=== PATIENT | female | born 1990 | race Caucasian/White ===

== ENCOUNTER → 2023-11-23 08:59 | Outpatient (REF) | payer OTHER, SELFPAY | LOC: PNTC 08:59 | PROVIDERS: ATTENDING PHYSICIAN Obstetrics & Gynecology | DX: Z36.0 Encounter for antenatal screening for chromosomal anomalies (principal); Z36.82 Encounter for antenatal screening for nuchal translucency | CPT/HCPCS: 76801; 76813 ==

== ENCOUNTER 2024-06-09 03:35 | Inpatient (IN) | payer OTHER, SELFPAY ==
[2024-06-09 04:34] VITALS: BP 122/78
[2024-06-09 05:02] VITALS: BMI 31.3
[2024-06-09 09:33] LABS: % Basophils 0.2 % (0-2); % Eosinophils 0.4 % (0-6); % Immature Granulocytes 0.5 % (0-0.5); % Lymphocytes 18.8 % (20.5-51.1); % Monocytes 8.1 % (1.7-9.3); Absolute Immature Granulocytes 0.1 10^3/uL (0-0.05); Absolute Monocytes 0.9 10^3/uL (0.1-0.6); Absolute Neutrophils 7.8 10^3/uL (1.4-6.5); Hematocrit 37.9 % (37.0-47.0); Hemoglobin 13.4 g/dL (12.0-16.0); Mean Corp Hgb Conc. 35.4 g/dL (33.0-37.0); Mean Corpuscular Hgb 31.5 pg (27.0-31.0); Mean Platelet Volume 11.6 fL (7.4-10.4); Nucleated Red Blood Cells % 0 %; Platelet Count 257 10^3/uL (130-400); Red Blood Cell Count 4.26 10^6/uL (4.20-5.40); White Blood Cell Count 10.8 10^3/uL (4.8-10.8)
[2024-06-09] MEDS: PITOCIN 30 UNITS/NSS 500 ML IV ×2 (10:09→23:39)
[2024-06-09] MEDS: FENTANYL/BUPIVACAINE 100 EPIDURAL ×2 (14:36→21:54)
[2024-06-09] MEDS: SUBLIMAZE 100 MCG EPIDURAL (14:36)
[2024-06-09] MEDS: LR 1000 IV (21:54)
[2024-06-10] MEDS: METHERGINE INJECTION 0.2 MG IM (00:27)
[2024-06-10] MEDS: MOTRIN 600 MG PO ×2 (01:36→19:32)
[2024-06-10] MEDS: TRANEXAMIC ACID 100 IV (02:02)
[2024-06-10 06:17] LABS: Hematocrit 37.6 % (37.0-47.0); Hemoglobin 13.6 g/dL (12.0-16.0)
[2024-06-10] MEDS: SENOKOT-S 1 TABLET PO (07:53)
[2024-06-10] MEDS: PRENATAL PLUS 1 TABLET PO (07:53)
[2024-06-10 11:12] LABS: Syphilis/T. pallidum Ab Reflex Negative (Negative)
[2024-06-10] MEDS: TYLENOL 650 MG PO (16:50)
[2024-06-11] MEDS: PRENATAL PLUS 1 TABLET PO (07:51)
[2024-06-11] MEDS: MOTRIN 600 MG PO (07:51)
== END 2024-06-11 13:26 | disposition home or self-care (01) | DRG 807 ==
LOC: LDRP 03:35
PROVIDERS: Obstetrics & Gynecology; ADMITTING PHYSICIAN Obstetrics & Gynecology
PROC: 10E0XZZ Delivery of Products of Conception, External Approach (ICD-10-PCS; 2024-06-10)
PROC: 0HQ9XZZ Repair Perineum Skin, External Approach (ICD-10-PCS; 2024-06-10)
DX: O70.0 First degree perineal laceration during delivery (principal); Z37.0 Single live birth; O77.0 Labor and delivery complicated by meconium in amniotic fluid; Z3A.40 40 weeks gestation of pregnancy
CPT/HCPCS: 88307; 85014; 85018; 85025; 86780; 86850; 86900; 86901

== ENCOUNTER 2024-12-24 22:02 | Emergency (ER) | payer OTHER, SELFPAY ==
[2024-12-24 22:07] VITALS: BP 115/75
--- NOTE | 2024-12-24 23:48 | ED.GENMED ---
History of Present Illness
General
Chief Complaint: Foreign Body Removal
Time Seen by Provider: 12/24/24 23:13
History of Present Illness
History of Present Illness:
34-year-old female 6 months concern for tampon stuck in her vagina. Patient states her last period was about a month ago but has noticed pressure while having sex yesterday. Patient states that feels like her partner is hitting against
something causing pressure. Patient denies fever, abdominal pain, vaginal pain or vaginal discharge.
Phy Exam
Physical Exam
Physical Exam:
General: Alert, no acute distress
Head: NCAT
Eyes: clear conjunctiva
Neck: supple
Cardiac: regular rate and rhythm, no murmur
Lungs: clear to auscultation bilaterally. No wheezes, rales, or rhonchi. Speaking full unlabored sentences. No respiratory distress.
Abdomen: soft, nondistended nontender. No rebound or guarding.
MSK: no lower extremity edema bilaterally. No deformity
Skin: warm, dry
Neuro: Alert and oriented x3. no focal deficits
Pelvic: No foreign bodies visualized. No cervical motion tenderness. No adnexal tenderness. No vaginal discharge. No vaginal bleeding. Nurse calender feeder present during exam
Course
Vital Signs
Initial and Last Documented VS:
Initial Vital Signs
Temp Pulse Resp BP Pulse Ox
98.2 F 84 18 115/75 99
12/24/24 22:07 12/24/24 22:07 12/24/24 22:07 12/24/24 22:07 12/24/24 22:07
Last Documented Vital Signs
Temp Pulse Resp BP Pulse Ox
98.2 F 84 18 115/75 99
12/24/24 22:07 12/24/24 22:07 12/24/24 22:07 12/24/24 22:07 12/24/24 22:07
MDM/Problems Addressed
MDM/Problems Addressed:
34-year-old female currently 6 months presenting for concern she has a tampon stuck in her vagina. Patient reports pressure while having sex most recently last night. Patient denies fever, abdominal pain or vaginal discharge. Pelvic
exam normal, no foreign bodies visualized. ?partner striking cervix causing pressure. Stable for discharge with OBGYN follow up
*Critical Care Note
Total Time (30-74mins, 75-104mins- exclusive of procedures): Not Applicable
ED Attending Note
-
Portions of this chart may have been created with voice recognition software.� Occasional wrong word or��sound alike� substitutions may have occurred due to the inherent limitations of voice recognition software.
Discharge Plan
Departure
Patient Disposition: Home (Routine Discharge)
Date of Disposition: 12/24/24
Time of Disposition: 23:51
Patient with high blood pressure during this ER visit?: No
Discharge Problem:
Pelvic pressure in female
Prescriptions:
No Action
prenat.vits,victorino,noe-[id number] Tablet
1 tab PO DAILY
ibuprofen 600 mg Tablet
600 mg PO Q6HPRN PRN (Reason: moderate pain/cramps) Qty: 90 0RF
Referrals:
Terese Lewis MD [Active] -
NONE,* [Family Provider] -
Activity Restrictions/Additional Instructions:
Follow-up with [facility]
Return to the emergency department for vaginal discharge or new/worsening symptoms
Interventions
Interventions:
*Risk Screen - Suicide Last Done: 12/24/24 22:10
*General Assessment Last Done: 12/24/24 22:10
*Neglect/Abuse Screening Last Done: 12/24/24 22:10
*ED COVID-19 Vaccine History Last Done: 12/24/24 22:10
Discharge Date and Time
Print Language: SWEDISH
== END 2024-12-25 00:16 | disposition home or self-care (01) ==
LOC: EMR 22:02
PROVIDERS: EMERGENCY PHYSICIAN Emergency Medicine
DX: R10.2 Pelvic and perineal pain (principal)
CPT/HCPCS: 99282